=== PATIENT | female | born 1960 | race African-American/Black ===

== ENCOUNTER 2017-08-24 09:28 | Emergency (ER) | payer MEDICAID ==
[~2017-08-24] VITALS: Ht 165.1 cm; Wt 56.1 kg
[2017-08-24 11:08] VITALS: BP 136/73
== END 2017-08-24 11:10 | disposition home or self-care (01) ==
LOC: ER 09:57
DX: H01.001 Unspecified blepharitis right upper eyelid (principal); F41.9 Anxiety disorder, unspecified
CPT/HCPCS: 99283

== ENCOUNTER 2024-06-30 15:50 | Emergency (ER) | payer MEDICAID, OTHER ==
[~2024-06-30] VITALS: Ht 162.6 cm; Wt 51.0 kg
[2024-06-30 16:07] VITALS: TEMP 36.8; O2SAT 98
[2024-06-30 16:29] LABS: BASOPHILS % 1.3 % (0.0-2.0); DIFFERENTIAL COMMENT 0; EOSINOPHILS % 1.9 % (0.0-5.0); HEMOGLOBIN. 14.3 g/dL (12.0-16.0); LYMPHOCYTES % 56.7 % (20.0-50.0); MEAN CORPUSCULAR HEMOGLOBIN 32.8 pg (28.0-32.0); MEAN CORPUSCULAR VOLUME 96.5 fL (81.0-99.0); MEAN PLATELET VOLUME 8.6 fl (7.4-10.4); MONOCYTES % 11.7 % (2.0-8.0); NEUTROPHILS % 28.4 % (40.0-76.0); PLATELET 273 x1000/uL (130-400); RED BLOOD CELL COUNT 4.35 mill/uL (4.2-5.4); RED CELL DISTRIBUTION WIDTH 12.5 % (11.6-14.6)
[2024-06-30 16:35] LABS: CHLORIDE 106 mEq/L (98-107); SODIUM 138 mEq/L (136-145)
[2024-06-30 16:36] LABS: CARBON DIOXIDE 27 mEq/L (21-32)
[2024-06-30 16:37] LABS: CALCIUM 9.9 mg/dL (8.7-10.4)
[2024-06-30 16:41] LABS: CREATININE 0.7 mg/dL (0.6-1.0); GLUCOSE 97 mg/dL (70-105); UREA NITROGEN BLOOD 8 mg/dL (9-23)
[2024-06-30 16:43] LABS: TROPONIN I HIGH SENSITIVITY 5 ng/L (3.0-34)
[2024-06-30 19:30] LABS: TROPONIN I HIGH SENSITIVITY 6 ng/L (3.0-34)
[2024-06-30 19:43] VITALS: BP 127/76; PULSE 93; RESP 14; O2SAT 100
== END 2024-06-30 19:44 | disposition home or self-care (01) ==
LOC: ER 15:50
DX: R06.02 Shortness of breath (principal); R07.89 Other chest pain; I51.9 Heart disease, unspecified; Z88.0 Allergy status to penicillin
CPT/HCPCS: 36415; 71045; 80048; 83880; 84484; 85025; 93005; 99285